=== PATIENT | female | born 1990 | race African-American/Black ===

== ENCOUNTER 2018-05-10 06:24 | Inpatient (IN) | payer MEDICAID ==
[~2018-05-10] VITALS: Ht 180.3 cm; Wt 91.8 kg
[~2018-05-10 06:24] MED LIST: IBUP-1222 PO; OXYC-302 PO
[2018-05-10 06:37] VITALS: BP 131/79
[2018-05-10] MEDS ORDERED: AMPICILLIN 2 GM in SODIUM CHLORIDE 0.9% 100 ML IVPB STA (07:34)
[2018-05-10] MEDS ORDERED: FENTANYL/BUPIV./NS/PF 250 ML EPIDCONT SCH ×2 (07:34→10:55)
[2018-05-10] MEDS ORDERED: OXYTOCIN 30U/ 0.9% NaCL 500ML 500 ML IV ONE (07:34)
[2018-05-10] MEDS ORDERED: LACTATED RINGERS 1,000 ML IVBOLUS PRN ×2 (08:00→12:00)
[2018-05-10] MEDS ORDERED: FENTANYL PF 100 MCG/2ML IV PRN (08:00)
[2018-05-10] MEDS ORDERED: FENTANYL PF 100 MCG/2ML IVPush PRN (08:00)
[2018-05-10] MEDS ORDERED: FENTANYL PF 500 MCG, BUPIVACAINE/PF 0.5%, 30ML 62.5 ML in SODIUM CHLORIDE 0.9% 177.5 ML EPIDCONT SCH (08:00)
[2018-05-10 08:08] LABS: BASOPHILS # (AUTO) 0.01 x10^3/uL (0-0.1); BASOPHILS % (AUTO) 0 % (0-1); EOSINOPHILS # (AUTO) 0.01 x10^3/uL (0-0.4); EOSINOPHILS % (AUTO) 0 % (1-7); LYMPHOCYTES % (AUTO) 14 % (22-44); MD NO; MEAN CORPUSCULAR HEMOGLOBIN 27.8 pg (27.0-34.8); MEAN CORPUSCULAR HGB CONC 32.9 g/dL (32.4-35.8); MEAN CORPUSCULAR VOLUME 84.5 fL (80-100); MEAN PLATELET VOLUME 8.6 fL (7.4-10.4); MONOCYTES # (AUTO) 0.61 x10^3/uL (0.2-0.8); MONOCYTES % (AUTO) 7 % (2-9); NEUTROPHILS # (AUTO) 6.76 x10^3/uL (1.8-6.8); NEUTROPHILS % (AUTO) 79 % (42-75); PLATELET COUNT 274 x10^3/uL (130-400); RED BLOOD COUNT 4.25 x10^6/uL (3.82-5.3); RED CELL DISTRIBUTION WIDTH 13.5 % (9.6-15.2)
[2018-05-10] MEDS ORDERED: NEWBORN KIT ONE (09:25)
[2018-05-10] MEDS ORDERED: EPHEDRINE 50 MG/ML, 1ML ONE (09:53)
[2018-05-10] MEDS ORDERED: LIDOCAINE/PF 1.5-EPI 1:200K, 30 ML ONE (09:53)
[2018-05-10] MEDS ORDERED: BUPIVACAINE 0.25% ONE (09:53)
[2018-05-10] MEDS ORDERED: NALOXONE 0.4 MG/ML, 1ML IVPush PRN (11:00)
[2018-05-10] MEDS ORDERED: EPHEDRINE 50 MG/ML, 1ML IVPush PRN (11:00)
[2018-05-10] MEDS: AMPICILLIN 1 GM in SODIUM CHLORIDE 0.9% 100 ML IVPB SCH ×2 (11:20→16:00)
[2018-05-10] MEDS ORDERED: LACTATED RINGERS 1,000 ML IV SCH (12:00)
[2018-05-10] MEDS ORDERED: OXYTOCIN 30U/ 0.9% NaCL 500ML 500 ML ONE (12:30)
[2018-05-10] MEDS ORDERED: MISOPROSTOL 200 MCG TABLET ONE (12:30)
[2018-05-10] MEDS ORDERED: LIDOCAINE/PF 1%, 30ML ONE (12:30)
[2018-05-10] MEDS: LACTATED RINGERS 1,000 ML IV SCH ×2 (12:34→15:34)
[2018-05-10] MEDS ORDERED: OXYTOCIN 30U/ 0.9% NaCL 500ML 500 ML IV SCH (13:10)
[2018-05-10] MEDS ORDERED: DOCUSATE 100 MG CAPSULE PO PRN (13:30)
[2018-05-10] MEDS ORDERED: MISOPROSTOL 200 MCG TABLET SL PRN (13:30)
[2018-05-10] MEDS ORDERED: OXYcodone/APAP 5/325MG TABLET PO PRN (13:30)
[2018-05-10] MEDS ORDERED: IBUPROFEN 600 MG TABLET ONE (14:30)
[2018-05-10] MEDS: IBUPROFEN 600 MG TABLET PO PRN ×2 (14:34→20:51)
[2018-05-10 15:20] VITALS: BP 114/69
[2018-05-10 20:40] VITALS: BP 122/67
[2018-05-10 21:24] LABS: MEAN CORPUSCULAR HEMOGLOBIN 27.9 pg (27.0-34.8); MEAN CORPUSCULAR HGB CONC 33.1 g/dL (32.4-35.8); MEAN CORPUSCULAR VOLUME 84.3 fL (80-100); MEAN PLATELET VOLUME 8.6 fL (7.4-10.4); PLATELET COUNT 259 x10^3/uL (130-400); RED BLOOD COUNT 4.06 x10^6/uL (3.82-5.3); RED CELL DISTRIBUTION WIDTH 13.4 % (9.6-15.2)
[2018-05-10 21:41] LABS: BASOPHILS # (AUTO) 0.03 x10^3/uL (0-0.1); BASOPHILS % (AUTO) 0 % (0-1); EOSINOPHILS % (AUTO) 0 % (1-7); LYMPHOCYTES # (AUTO) 1.37 x10^3/uL (1-3.4); LYMPHOCYTES % (AUTO) 8 % (22-44); MD SCAN; MONOCYTES # (AUTO) 0.66 x10^3/uL (0.2-0.8); MONOCYTES % (AUTO) 4 % (2-9); NEUTROPHILS # (AUTO) 14.49 x10^3/uL (1.8-6.8); NEUTROPHILS % (AUTO) 88 % (42-75)
[2018-05-10] MEDS ORDERED: RHOGAM FROM BLOOD BANK 1 NOTE EA IM/IV ONE (23:30)
[2018-05-11] VITALS: BP 118/66
[2018-05-11] MEDS: IBUPROFEN 600 MG TABLET PO PRN ×4 (02:53→22:12)
[2018-05-11 04:00] VITALS: BP 114/74
[2018-05-11 07:50] VITALS: BP 124/77
[2018-05-11] MEDS ORDERED: PRENATAL VIT/IRON/FA 1 EACH TABLET PO SCH (09:00)
[2018-05-11 20:00] VITALS: BP 132/89
[2018-05-12] MEDS: IBUPROFEN 600 MG TABLET PO PRN (05:01)
[2018-05-12 08:00] VITALS: BP 128/84
== END 2018-05-12 09:16 | disposition home or self-care (01) | DRG 775 ==
LOC: LDOP 06:24 → LDIP 07:37 → 2NW 16:22
PROVIDERS: ADMIT Obstetrics & Gynecology; ATTEND Obstetrics & Gynecology
PROC: 10E0XZZ Delivery of Products of Conception, External Approach (ICD-10-PCS; principal; 2018-05-10)
PROC: 00HU33Z Insertion of Infusion Device into Spinal Canal, Percutaneous Approach (ICD-10-PCS; 2018-05-10)
PROC: 3E0R3BZ Introduction of Anesthetic Agent into Spinal Canal, Percutaneous Approach (ICD-10-PCS; 2018-05-10)
DX: O34.219 Maternal care for unspecified type scar from previous cesarean delivery (principal); O99.824 Streptococcus B carrier state complicating childbirth; Z3A.39 39 weeks gestation of pregnancy; Z37.0 Single live birth
CPT/HCPCS: 36415; J2790; 85025; 85461; 86850; 86900; 89060; J0290; J3010; J3490; J7050; J7120; Q0114